=== PATIENT | female | born 1975 | race Caucasian/White ===

== ENCOUNTER 2017-07-29 18:46 | Emergency (ER) | payer OTHER ==
[~2017-07-29] VITALS: Ht 167.6 cm; Wt 70.0 kg
[~2017-07-29 18:46] MED LIST: AMLO5 PO; LAMO100 PO; MACR100C PO; PHEN1TAB49 PO
[2017-07-29 19:04] VITALS: BP 134/85; PULSE 81; RESP 20; TEMP 98.7; O2SAT 97
[2017-07-29 20:01] LABS: AUTOMATED NEUTROPHIL # 8.5 TH/MM3 (1.8-7.7); BASOPHIL % 0.2 % (0.0-2.0); EOSINOPHIL % 0.3 % (0.0-4.0); HEMATOCRIT 37.5 % (35.0-46.0); HEMOGLOBIN 12.5 GM/DL (11.6-15.3); LYMPH % 23.1 % (9.0-44.0); LYMPHOCYTE # 2.7 TH/MM3 (1.0-4.8); MEAN CELL VOLUME 82.3 FL (80.0-100.0); MEAN CORPUSCULAR HEMOGLOBIN 27.4 PG (27.0-34.0); MEAN CORPUSCULAR HGB CONC 33.4 % (32.0-36.0); MEAN PLATELET VOLUME 8.4 FL (7.0-11.0); MONOCYTE # 0.5 TH/MM3 (0-0.9); NEUT % 72.4 % (16.0-70.0); PLATELET COUNT 256 TH/MM3 (150-450); RED BLOOD COUNT 4.55 MIL/MM3 (4.00-5.30); WHITE BLOOD COUNT 11.7 TH/MM3 (4.0-11.0)
--- NOTE | 2017-07-29 20:09 | PD ---
HPI Chief Complaint: Psychiatric Symptoms Time Seen by Provider: 19:24 Travel History International Travel<30 days: No Contact w/Intl Traveler<30days: No Traveled to known affect area: No History of Present Illness HPI 42-year-old female that presents to the ED for evaluation of Osorio act. Patient was Osorio acted by police after apparently police had to be involved on a domestic dispute. Per patient she's been having issues with her and she is undergoing a divorce from him. Apparently they've been having a lot of altercations and today she was drinking and when she had the altercation with him she stated that she was either going to kill herself or him and she was Osorio acted because of this. She did not hit or got hit by anybody but she states that she is going acute argument with her significant other. She denies any medical issues. She's never been Osorio acted before. Denies any history of depression or anxiety. No drug use. Has no allergies to medication. No other medical issues at this time. No pain of any kind. She's been calm and cooperative the whole time. Symptoms appear to have worsened today secondary to alcohol and argument with . Nothing seems to make it better. PFSH Past Medical History Medical History: Denies Significant Hx Immunizations Current: Yes Tetanus Vaccination: > 5 Years Influenza Vaccination: No ?: Unknown : 2 Para: 2 Miscarriage: 0 : 0 Past Surgical History Section: Yes (x1) Social History Alcohol Use: Yes Tobacco Use: No Substance Use: No Allergies-Medications (Allergen,Severity, Reaction): Coded Allergies: No Known Allergies (Unverified , 07/29/17) Reported Meds & Prescriptions Reported Meds & Active Scripts Active No Active Prescriptions or Reported Medications Review of Systems Except as stated in HPI: all other systems reviewed are Neg Physical Exam Narrative GENERAL: SKIN: Warm and dry. HEAD: Atraumatic. Normocephalic. EYES: Pupils equal and round. No scleral icterus. No injection or drainage. ENT: No nasal bleeding or discharge. Mucous membranes pink and moist. Tongue is midline. No uvula deviation. NECK: Trachea midline. No JVD. CARDIOVASCULAR: Regular rate and rhythm. No murmurs, S3, S4. RESPIRATORY: No accessory muscle use. Clear to auscultation. Breath sounds equal bilaterally. GASTROINTESTINAL: Abdomen soft, non-tender, nondistended. Hepatic and splenic margins not palpable. MUSCULOSKELETAL: Extremities without clubbing, cyanosis, or edema. No obvious deformities. Full range of motion of the upper and lower extremities bilaterally. 2+ pulses bilaterally. NEUROLOGICAL: Awake and alert. No obvious cranial nerve deficits. Motor grossly within normal limits. Five out of 5 muscle strength in the arms and legs. Normal speech. PSYCHIATRIC: Appropriate mood and affect; insight and judgment normal. Data Data Last Documented VS Vital Signs Date Time Temp Pulse Resp B/P (MAP) Pulse Ox O2 Delivery O2 Flow Rate FiO2 07/29/17 19:04 98.7 81 20 134/85 (101) 97 Room Air Orders Orders Complete Blood Count With Diff (07/29/17 19:09) Comprehensive Metabolic Panel (07/29/17 19:09) Thyroid Stimulating Hormone (07/29/17 19:09) Psych Screen (07/29/17 19:09) Drug Screen, Random Urine (07/29/17 19:09) Alcohol (Ethanol) (07/29/17 19:09) Salicylates (Aspirin) (07/29/17 19:09) Tylenol (Acetaminophen) (07/29/17 19:09) Ed Urine Pregnancytest Poc (07/29/17 19:23) Labs Laboratory Tests Test 07/29/17 19:15 White Blood Count 11.7 TH/MM3 Red Blood Count 4.55 MIL/MM3 Hemoglobin 12.5 GM/DL Hematocrit 37.5 % Mean Corpuscular Volume 82.3 FL Mean Corpuscular Hemoglobin 27.4 PG Mean Corpuscular Hemoglobin Concent 33.4 % Red Cell Distribution Width 17.0 % Platelet Count 256 TH/MM3 Mean Platelet Volume 8.4 FL Neutrophils (%) (Auto) 72.4 % Lymphocytes (%) (Auto) 23.1 % Monocytes (%) (Auto) 4.0 % Eosinophils (%) (Auto) 0.3 % Basophils (%) (Auto) 0.2 % Neutrophils # (Auto) 8.5 TH/MM3 Lymphocytes # (Auto) 2.7 TH/MM3 Monocytes # (Auto) 0.5 TH/MM3 Eosinophils # (Auto) 0.0 TH/MM3 Basophils # (Auto) 0.0 TH/MM3 CBC Comment DIFF FINAL Differential Comment MDM Medical Decision Making Medical Screen Exam Complete: Yes Emergency Medical Condition: Yes Medical Record Reviewed: Yes Interpretation(s) CBC Diagram 1/26/18 19:15 Differential Diagnosis Depression versus suicidal ideation versus anxiety versus adjustment disorder versus mood disorder versus bipolar disorder versus schizophrenia versus paranoid disorder versus psychosis versus substance abuse versus alcohol abuse versus alcohol induced psychosis versus homicidality addition versus cutting versus personality disorder Narrative Course 42-year-old female that presents to the ED for evaluation of psych. Patient was properly examine him was found to have signs and symptoms consistent with psychiatric illness. Labs were ordered. Patient was medically cleared. Okay to be seen by psych.Mental health screening was discussed with the patient. Diagnosis Primary Impression: Suicidal ideation Scripts No Active Prescriptions or Reported Meds Jose Thornton Jul 29, 2017 20:09
[2017-07-29 20:19] LABS: ALBUMIN 4.3 GM/DL (3.4-5.0); AST (GOT) 12 U/L (15-37); BICARBONATE 21.9 MEQ/L (21.0-32.0); BLOOD UREA NITROGEN 7 MG/DL (7-18); CALCIUM 9.1 MG/DL (8.5-10.1); CHLORIDE 110 MEQ/L (98-107); CREATININE 0.75 MG/DL (0.50-1.00); GLOMERULAR FILTRATION RATE 86 ML/MIN (>89); GLUCOSE,RANDOM 91 MG/DL (74-106); SODIUM (NA) 140 MEQ/L (136-145)
[2017-07-29 20:20] LABS: ALT (GPT) 15 U/L (10-53)
[2017-07-29 20:30] LABS: ALKALINE PHOSPHATASE 74 U/L (45-117); TOTAL BILIRUBIN ADULT 0.2 MG/DL (0.2-1.0); TOTAL PROTEIN 8.3 GM/DL (6.4-8.2)
[2017-07-29 20:35] LABS: ACETAMINOPHEN LESS THAN 2.0 MCG/ML (10.0-30.0)
[2017-07-30 00:59] VITALS: BP 138/80; PULSE 83; RESP 14; O2SAT 98
[2017-07-30 09:40] VITALS: BP 172/114; PULSE 69; RESP 20; TEMP 98.2; O2SAT 97
--- NOTE | 2017-07-30 13:35 | PD ---
History of Present Illness Chief Complaint: Psychiatric Symptoms Time Seen by Provider: 12:50 Travel History International Travel<30 Days: No Contact w/Intl Traveler<30days: No Known affected area: No Legal Status Legal Status: Osorio Act Osorio Act Signed By: Abbie Segovia History of Present Illness: History of Present Illness 42-year-old female with no reported psychiatric history that presents to the ED for evaluation of Osorio act initiated by law enforcement. The report alleges that the police were called to the scene of a domestic disturbance and that while on seen the patient advised the police that she was at her breaking point and was either going to kill herself or kill him. The patient gives the following account of the events leading to the Osorio act. She was involved in an argument with her and decided that she needed some time to cool off. She walked to a nearby bar where she spent a couple of hours having some beers. Her found her at the bar and was asking her to take her home which she did not want to do. She eventually went home and was at home with her daughter. Her wanted to return back to the home but she wanted him to stay away for several hours. When he came back to the house they were arguing and that's when the police were called. The patient admits to being intoxicated at the time and her blood alcohol level on arrival was 156. She tells me that she knows that she said things that she did not mean and that they were said out of anger. The patient did not make an attempt at harming herself or anyone else. EMR is reviewed. No previous contact with [facility] psychiatry. Current toxicology is negative for any substances other than alcohol. Patient is seen in J pod. Alert, oriented female was dressed in [facility] with adequate hygiene and grooming. She is clinically sober. Her speech is clear and logical. Her mood is euthymic. She does not present any evidence of any psychosis, no stefany or hypomania. She denies any suicidal or homicidal ideation, intent or plan. The remainder of the psychiatric ROS is negative. She admits that she was intoxicated. She is requesting to be discharged and has been in communication with her who will come and pick her up at the hospital. [facility] Past Medical History Medical History: Denies Significant Hx Immunizations Current: Yes Tetanus Vaccination: > 5 Years Influenza Vaccination: No ?: Unknown : 2 Para: 2 Miscarriage: 0 : 0 Past Surgical History Section: Yes (x1) Psychiatric History Psychiatric History Hx Psychiatric Treatment: PT DENIES History of Inpatient Treatment: No Guns or firearms in home: No Social History female who lives with her and her 6-year-old daughter. She states that the couple was going through a divorce but are forced to live together out of financial responsibilities. She is unemployed. Hx Alcohol Use: Yes Hx Tobacco Use: No Hx Substance Use: No (PT DENIES) Substance Use Type: Alcohol (reports she does not drink every day but has been drinking more in the last several months) Hx of Substance Use Treatment: No Family Psychiatric History Negative Allergies-Medications (Allergen,Severity, Reaction): Coded Allergies: No Known Allergies (Unverified , 07/29/17) Reported Meds & Prescriptions Reported Meds & Active Scripts Active No Active Prescriptions or Reported Medications Review of Systems Psychiatric: DENIES: Anxiety, Confusion, Mood changes, Depression, Hallucinations, Agitation, Suicidal Ideation, Homicidal Ideation, Delusions Except as stated in HPI: all other systems reviewed are Neg Mental Status Examination Appearance: Appropriate Consciousness: Alert Orientation: x4 Motor Activity: Normal gait Speech: Unremarkable Language: Adequate Fund of Knowledge: Adequate Attention and Concentration: Adequate Memory: Unremarkable Mood: Appropriate Affect: Appropriate Thought Process & Associations: Intact, Logical, Goal directed Thought Content: Appropriate Hallucination Type: None Delusion Type: None Suicidal Ideation: No Suicidal Plan: No Suicidal Intention: No Homicidal Ideation: No Homicidal Plan: No Homicidal Intention: No Insight: Adequate Judgment: Adequate MDM Medical Decision Making Medical Record Reviewed: Yes Assessment/Plan 42-year-old female with no previous history of psychiatric illness when context of an argument with her as well as alcohol intoxication made a statement to law enforcement that she was at her breaking point and was either going to kill herself or kill her . The patient did not make any attempt at harming herself or harming anyone else. The patient once clinically sober denies any suicidal, homicidal ideation intent or plan. There is no evidence of any unstable mental illness as defined under the Osorio act. The patient is future oriented. The patient has adequate protective factors. The patient is requesting to be discharge and does not meet criteria to remain under the Osorio act. She is provided support and psychoeducation. The Osorio act is lifted. Psychiatrically clear for discharge from the ED. Orders Orders Complete Blood Count With Diff (07/29/17 19:09) Comprehensive Metabolic Panel (07/29/17 19:09) Thyroid Stimulating Hormone (07/29/17 19:09) Psych Screen (07/29/17 19:09) Drug Screen, Random Urine (07/29/17 19:09) Alcohol (Ethanol) (07/29/17 19:09) Salicylates (Aspirin) (07/29/17 19:09) Tylenol (Acetaminophen) (07/29/17 19:09) Ed Urine Pregnancytest Poc (07/29/17 19:23) Diet Regular Basic (07/30/17 Breakfast) Diet Regular Basic (07/30/17 Lunch) Results Vital Signs Date Time Temp Pulse Resp B/P (MAP) Pulse Ox O2 Delivery O2 Flow Rate FiO2 07/30/17 09:40 98.2 69 20 172/114 (133) 97 Room Air 07/30/17 00:59 83 14 138/80 (99) 98 07/29/17 19:04 98.7 81 20 134/85 (101) 97 Room Air Laboratory Tests Test 07/29/17 19:15 White Blood Count 11.7 Red Blood Count 4.55 Hemoglobin 12.5 Hematocrit 37.5 Mean Corpuscular Volume 82.3 Mean Corpuscular Hemoglobin 27.4 Mean Corpuscular Hemoglobin Concent 33.4 Red Cell Distribution Width 17.0 Platelet Count 256 Mean Platelet Volume 8.4 Neutrophils (%) (Auto) 72.4 Lymphocytes (%) (Auto) 23.1 Monocytes (%) (Auto) 4.0 Eosinophils (%) (Auto) 0.3 Basophils (%) (Auto) 0.2 Neutrophils # (Auto) 8.5 Lymphocytes # (Auto) 2.7 Monocytes # (Auto) 0.5 Eosinophils # (Auto) 0.0 Basophils # (Auto) 0.0 CBC Comment DIFF FINAL Differential Comment Blood Urea Nitrogen 7 Creatinine 0.75 Random Glucose 91 Total Protein 8.3 Albumin 4.3 Calcium Level 9.1 Alkaline Phosphatase 74 Aspartate Amino Transf (AST/SGOT) 12 Alanine Aminotransferase (ALT/SGPT) 15 Total Bilirubin 0.2 Sodium Level 140 Potassium Level 3.8 Chloride Level 110 Carbon Dioxide Level 21.9 Anion Gap 8 Estimat Glomerular Filtration Rate 86 Thyroid Stimulating Hormone 3rd Gen 2.920 Salicylates Level LESS THAN 1.7 Urine Opiates Screen NEG Acetaminophen Level LESS THAN 2.0 Urine Barbiturates Screen NEG Urine Amphetamines Screen NEG Urine Benzodiazepines Screen NEG Urine Cocaine Screen NEG Urine Cannabinoids Screen NEG Ethyl Alcohol Level 156 Diagnosis Primary Impression: Alcohol intoxication Ruled Out: Suicidal ideation Psychiatrically Cleared: Yes Med/ Other Pt Specific Info: No Meds Exist/No RX given Prescriptions No Active Prescriptions or Reported Meds Disposition: 01 DISCHARGE HOME Condition: Stable Problem Qualifiers Primary Impression: Alcohol intoxication Qualified Codes: F10.920 - Alcohol use, unspecified with intoxication, uncomplicated Mili Stratton Jul 30, 2017 13:35
== END 2017-07-30 16:01 | disposition home or self-care (01) ==
LOC: MERGE 18:46 → NEDAMB 18:46 → NEPJ 07-30 16:01
DX: F10.129 Alcohol abuse with intoxication, unspecified (principal); R45.851 Suicidal ideations
CPT/HCPCS: 80053; 80307; 84443; 84703; 85025; 99284